=== PATIENT | male | born 1965 | race Caucasian/White ===

== ENCOUNTER 2023-04-10 00:01 | Emergency (ER) | payer OTHER, SELFPAY ==
[2023-04-10 00:22] VITALS: BP 151/79; PULSE 76; RESP 16; TEMP 36.7; O2SAT 97; BMI 28.4
--- NOTE | 2023-04-10 00:26 | ED.UPPEXIN1 ---
HPI - Extremity Injury (Upper) General Chief Complaint: Extremity Injury, Upper Stated Complaint: UPPER EXTREMITY INJURY Time Seen by Provider: 04/10/23 00:26 History of Present Illness HPI narrative: Patient presents emergency department complaining of right shoulder pain. Patient states he was Picking up to the garbage bags and throwing them into a dumpster and all he took the motion of throwing it he felt a pop into his right shoulder. He states it felt like it popped times and he feels that this is located. Patient states he is not able to raise his arm at the shoulder. Denies any paresthesias. He denies any fall. He denies any other injury. He states he never had any issues with his shoulder. Related Data Previous Rx's Medication Instructions Recorded ibuprofen 800 mg tablet 800 mg PO Q8H PRN pain #20 tabs 04/10/23 Allergies Allergy/AdvReac Type Severity Reaction Status Date / Time No Known Drug Allergies Allergy Verified 04/10/23 00:26 Review of Systems ROS Status of ROS 10 or more systems reviewed and unremarkable except as noted in history and below [facility] Social History Smoking status: Former smoker Exam Narrative Exam Narrative: Nurses notes and vital signs reviewed and patient is not hypoxic. General: Nontoxic, Well-appearing and in no apparent distress. Skin: Warm, dry, no pallor noted. No Rash Head: Normocephalic, atraumatic. Neck: Supple, non-tender. Eye: Pupils are equal, round and EOMI. No scleral icterus. Ears, Nose, Mouth, and Throat: TM clear, no posterior oropharynx erythema or nasal mucosal hypertrophy, uvula is mid-line Oral mucosa is moist Cardiovascular: Regular Rate and Rhythm without murmur, gallop or rub. Respiratory: No accessory muscle use or respiratory distress. Lungs are clear to auscultation, no wheezing, rales or rhonchi Chest Wall: no tenderness Back: No midline thoracic or lumbar vertebral tenderness. No CVA tenderness Musculoskeletal: Tenderness to palpation to the biceps tendon area. There is no obvious deformity. Range of motion is limited to flexion, and abduction. Normal sensation over the deltoid, thumb, middle finger, pinky. Radial pulse +2, capillary refill is brisk. Distal neurovascularly intact. no calf or popliteal tenderness, no lower extremity edema/swelling GI: Abdomen is soft, non-distended. Normal bowel sounds. Neurological: A&O x4. No cranial nerve dysfunction observed. No truncal ataxia. Moves all extremities. Sensation intact. Psychiatric: Cooperative and interactive. Normal mood and affect. Constitutional Vital Signs, click to edit/add: Last Vital Signs Temp 98.0 F 04/10/23 00:22 Pulse 76 04/10/23 00:22 Resp 16 04/10/23 00:22 BP 151/79 H 04/10/23 00:22 Pulse Ox 97 04/10/23 00:22 O2 Del Method Room Air 04/10/23 00:22 Course Vital Signs Vital signs: Vital Signs Temperature 98.0 F 04/10/23 00:22 Pulse Rate 76 04/10/23 00:22 Respiratory Rate 16 04/10/23 00:22 Blood Pressure 151/79 H 04/10/23 00:22 Pulse Oximetry 97 04/10/23 00:22 Oxygen Delivery Method Room Air 04/10/23 00:22 Temperature 98.0 F 04/10/23 00:22 Pulse Rate 76 04/10/23 00:22 Respiratory Rate 16 04/10/23 00:22 Blood Pressure 151/79 H 04/10/23 00:22 Pulse Oximetry 97 04/10/23 00:22 Oxygen Delivery Method Room Air 04/10/23 00:22 MDM - Extremity Injury (Upper) MDM Narrative Medical decision making narrative: Physical are consistent with rotator cuff tear. X-ray does not show any bony abnormality. Patient was instructed to take Motrin. Given a prescription for Motrin 800. Placed in a sling. He is to follow-up with [facility] on Wednesday. Patient initially did not want anything for pain the prior to leaving asked for something for pain. He was given with albuterol Pep by mouth. At this time the patient is without objective evidence of an acute process requiring hospitalization or inpatient management. The patient has remained hemodynamically stable. No additional indication for emergent studies at this time. I answered all questions. Discussed discharge instructions including standard anticipatory guidance and what should prompt a return to the emergency department, including if they get worse are not getting better or develops any new or concerning symptoms. I've given them specific time frame in which to follow-up, and who to follow-up with. The patient demonstrates understanding. Patient is nontoxic and stable for discharge with outpatient follow-up. This note was created with the assistance of a speech recognition program. Although the intention is to generate documents that actually reflects the content of the visit, no guarantees can be provided that every mistake has been identified and corrected by editing. Differential Diagnosis Differential diagnosis: Likely dislocation of shoulder, fracture of humerus and fracture of clavicle Discharge Plan Discharge Chief Complaint: Extremity Injury, Upper Clinical Impression: Rotator cuff tear Patient Disposition: Home, Self-Care Time of Disposition Decision: 00:55 Condition: Good Mode of Transportation: Private Vehicle Prescriptions / Home Meds: New ibuprofen 800 mg tablet 800 mg PO Q8H PRN (Reason: pain) Qty: 20 0RF Instructions: Rotator Cuff Injury (ED) Stand Alone Forms: Portal Instructions Referrals: Pj Heard MD [Physician] - 1 week Discharge Date/Time: 04/10/23 01:57
--- NOTE | 2023-04-10 00:30 | PC.NURSE ---
patient states around approx 1130 he tried to throw a trashbag into the dumpster and when he lifted his right arm he heard and felt two pops in his right shoulder region. states he had instant pain. states now he is unable to lift arm straight out. sensation remains intact, patient able to move arm back and forth but can not lift up. bilateral pulses regular and strong. patient denies any other injury.
--- NOTE | 2023-04-10 00:30 | XR_ITS ---
[address] [address] Patient Name: MALCOM SIERRA MRN: [id number] date: 1965 Sex: M Assigned Patient Location: ER Current Patient Location: ED.MAIN Accession/Order Number: [id number] Exam Date: 04/10/2023 00:38 Report Date: 04/10/2023 01:19 At the request of: HAMMAD AVILA Procedure: XR shoulder RT min 2V XR shoulder RT min 2V 04/10/2023 12:38 AM EDT CLINICAL INDICATION: Dislocation COMPARISON: None. TECHNIQUE: 3 views of the right shoulder. FINDINGS: The bones are intact. The alignment is anatomic. There are degenerative changes of the joints. The soft tissues are grossly unremarkable. XR/XR shoulder RT min 2V IMPRESSION: No acute osseous abnormality of the right shoulder. No glenohumeral dislocation. Electronically authenticated by: BENTLEY BONILLA Date: 04/10/2023 01:19
== END 2023-04-10 01:57 | disposition home or self-care (01) ==
PROVIDERS: Emergency Provider Emergency Medicine
DX: S46.011A Strain of muscle(s) and tendon(s) of the rotator cuff of right shoulder, initial encounter (principal); Z87.891 Personal history of nicotine dependence; X50.9XXA Other and unspecified overexertion or strenuous movements or postures, initial encounter
CPT/HCPCS: 73030; 99283